=== PATIENT | female | born 1980 | race Caucasian/White ===

== ENCOUNTER 2016-08-30 21:11 | Emergency (ER) | payer OTHER ==
[~2016-08-30] VITALS: Ht 154.9 cm; Wt 75.2 kg
[~2016-08-30 21:11] MED LIST: TYL500 PO
[2016-08-30 21:25] VITALS: Ht 154.9 cm; Wt 75.2 kg
[2016-08-30] MEDS ORDERED: DEXT15DR2 RIGHT EYE (21:34)
[2016-08-30] MEDS ORDERED: PRED50TA PO (21:34)
[2016-08-30] MEDS ORDERED: VALA1000 PO (21:34)
--- NOTE | 2016-08-30 21:40 | ERD ---
ER Documentation Chief Complaint Date/Time DATE: 08/30/16 TIME: 21:36 Chief Complaint Right facial droop and unable to close right eye started yesterday HPI 36-year-old female presents here in emergency department for complaints of right facial drooping, unable to close right eyelid, numbness in the right side of the face area started yesterday. Patient denies any headache or dizziness. Patient denies any head injury. Patient denies any nausea vomiting. Patient denies any blurry vision. Patient denies any changes in balance or memory. Patient denies any numbness or tingling in other parts of the body. Patient denies any other symptoms. ROS All systems reviewed and are negative except as per history of present illness. Medications Home Meds Active Scripts Valacyclovir HCl (Valacyclovir) 1,000 Mg Tablet, 1000 MG PO TID for 7 Days, TAB Prov:NICOLE DE LEON NP 08/30/16 Dextran/Hypromellose/Glycerin (Artificial Tears Drops) 15 Ml Drops, 2 DROP RIGHT EYE Q6, #1 BOT Prov:NICOLE DE LEON NP 08/30/16 Prednisone* (Prednisone*) 50 Mg Tablet, 50 MG PO DAILY for 7 Days, TAB Prov:NICOLE DE LEON NP 08/30/16 Acetaminophen* (Tylenol*) 500 Mg Tab, 500 MG PO Q4H Y for MILD PAIN LEVEL 1-3, # 20 TAB Prov:HECTOR AVILES MD 06/27/15 Allergies Allergies: Coded Allergies: No Known Allergy (Unverified , 12/21/14) PMhx/Soc History of Surgery: Yes (c-sect x 3 ) Anesthesia Reaction: No Hx Neurological Disorder: No Hx Respiratory Disorders: No Hx Cardiac Disorders: No Hx Psychiatric Problems: Yes (depression ) Hx Miscellaneous Medical Probl: Yes (sleep disorder) Hx Alcohol Use: No Hx Substance Use: No Hx Tobacco Use: No FmHx Family History: No coronary disease, No diabetes, No other Physical Exam Vitals Vital Signs Date Time Temp Pulse Resp B/P Pulse Ox O2 Delivery O2 Flow Rate FiO2 08/30/16 21:25 98.9 90 16 119/67 97 Physical Exam GENERAL: The patient is well developed and appropriate for usual state of health, in no apparent distress. HEENT: Atraumatic. Bilateral are PERRL EOM intact. Ears: Normal tympanic membrane, no erythema or bulging. No ear canal swelling. No ear discharge. Nose : normal nasal turbinates, no erythema or swelling. Normal nasal discharge. Noted loss of right nasolabial fold. Throat: oropharynx clear. No tonsillar swelling or tonsillar exudates. No lymphadenopathy. No forehead sparing noted. CHEST: Clear to auscultation bilaterally. There are no rales, wheezes or rhonchi. HEART: Regular rate and rhythm. No murmurs, clicks, rubs or gallops. No S3 or S4. ABDOMEN: Soft, nontender and nondistended. Good bowel sounds. No rebound or guarding. No gross peritonitis. No gross organomegaly or masses. No Leung sign or McBurney point tenderness. BACK: No midline or flank tenderness. EXTREMITIES: Equal pulses bilaterally. There is no peripheral clubbing, cyanosis or edema. No focal swelling or erythema. Full range of motion. Grossly neurovascularly intact. NEURO: Alert and oriented. Cranial nerves 2-12 intact except for cranial nerves VII, facial nerve palsy noted. Motor strength in all 4 extremities with 5 /5 strength. Sensation grossly intact. Normal speech and gait. Negative overtime. Negative pronator drift. SKIN: There is no apparent rash or petechia. The skin is warm and dry. HEMATOLOGIC AND LYMPHATIC: There is no evidence of excessive bruising or lymphedema. No gross cervical, axillary, or inguinal lymphadenopathy. Procedures/MDM Medical Decision Making: Patient's symptoms of most likely consistent with Gipson' s palsy. There is low suspicion for neurological emergencies at this time since patients neurologic exam is normal except for facial nerve palsy. Patient did not have any altered level consciousness, vomiting, changes in balance or memory and did not have any head injury. There is no forehead sparing noted, no suspicion for acute stroke. Patients CT scan of the head is not indicated at this time. Patient was given for valacyclovir, prednisone, artificial tears, was advised to take the right eye with sleeping, mustache the right side of the face, patient was advised to take medications as prescribed, follow with primary care doctor in 2-3 days, reassured the patient, patient was given instructions to return to emergency department for acute stroke symptoms. Patient was advised to return to emergency department for any worsening symptoms Departure Diagnosis: Primary Impression: Gipson's palsy Condition: Stable Patient Instructions: Gipson's Palsy NICOLE DE LEON NP Aug 30, 2016 21:40
== END 2016-08-30 21:34 | disposition home or self-care (01) ==
LOC: E/R 21:11
DX: G51.0 Bell's palsy (principal)
CPT/HCPCS: 99284

== ENCOUNTER 2018-09-22 16:43 | Emergency (ER) | payer MEDICAID, OTHER ==
[~2018-09-22] VITALS: Ht 160 cm; Wt 71.6 kg
[~2018-09-22 16:43] MED LIST changes: +DEXT15DR2 RIGHT EYE; +PRED50TA PO; +VALA1000 PO
[2018-09-22 17:00] VITALS: BP 108/58; PULSE 80; RESP 18; Ht 160 cm; Wt 71.6 kg
--- NOTE | 2018-10-10 13:33 | ERD ---
ER Documentation Chief Complaint Chief Complaint right ear pain x2 days HPI Patient encounter from 09/22/18 38 yo F who presented to ED with 2 say complaint of ear pain. Unfortunately, patient left before full evaluation was complete. ROS All systems reviewed and are negative except as per history of present illness. Medications Home Meds Active Scripts valACYclovir HCl (valACYclovir) 1,000 Mg Tablet, 1000 MG PO TID for 7 Days, TAB Prov:NICOLE DE LEON NP 08/30/16 Dextran/Hypromellose/Glycerin (Artificial Tears Drops) 15 Ml Drops, 2 DROP RIGHT EYE Q6, #1 BOT Prov:NICOLE DE LEON NP 08/30/16 Prednisone* (Prednisone*) 50 Mg Tablet, 50 MG PO DAILY for 7 Days, TAB Prov:NICOLE DE LEON NP 08/30/16 Acetaminophen* (Tylenol*) 500 Mg Tab, 500 MG PO Q4H PRN for MILD PAIN LEVEL 1-3, #20 TAB Prov:HECTOR AVILES MD 06/27/15 Allergies Allergies: Coded Allergies: No Known Allergy (Unverified , 12/21/14) PMhx/Soc History of Surgery: Yes (c/section x4) Anesthesia Reaction: No Hx Neurological Disorder: No Hx Respiratory Disorders: No Hx Cardiac Disorders: No Hx Psychiatric Problems: Yes (depression ) Hx Miscellaneous Medical Probl: Yes (sleep disorder) Hx Alcohol Use: Yes Hx Substance Use: Yes Hx Tobacco Use: Yes Smoking Status: Current every day smoker Physical Exam Physical Exam Const: No acute distress Head: Atraumatic Eyes: Normal Conjunctiva ENT: Normal External Ears, Nose and Mouth. Neck: Full range of motion. No meningismus. Resp: Clear to auscultation bilaterally Cardio: Regular rate and rhythm, no murmurs Abd: Soft, non tender, non distended. Normal bowel sounds Skin: No petechiae or rashes Back: No midline or flank tenderness Ext: No cyanosis, or edema Neur: Awake and alert Psych: Normal Mood and Affect Procedures/MDM 38 yo F who presented with complaint of ear pain. Patient left before full medical evaluation could be completed. Departure Diagnosis: Primary Impression: Right ear pain Condition: Stable Patient Instructions: Earache W/O Infection (Adult) Additional Instructions: Call your primary care doctor TOMORROW for an appointment during the next 2-3 days.See the doctor sooner or return here if your condition worsens before your appointment time. PRINCESS LINDA PA-C Oct 10, 2018 13:33
== END 2018-09-22 20:26 | disposition left against medical advice (07) ==
LOC: FTE 16:43
DX: H92.01 Otalgia, right ear (principal); F17.210 Nicotine dependence, cigarettes, uncomplicated
CPT/HCPCS: 99282

== ENCOUNTER → 2019-02-14 | Emergency (ER) | payer MEDICAID, OTHER ==
[~2019-02-14] VITALS: Ht 152.4 cm; Wt 71.3 kg
[~2019-02-14] MED LIST changes: +CYCL10TA7 PO; +DEXAMETHASONE 10 MG/ML 1 ML INJ IM ONE; +KETOROLAC 30 MG INJ IM STA; +NAPR-985 PO
[2019-02-14 17:46] VITALS: BP 98/53; PULSE 71; RESP 18; Ht 152.4 cm; Wt 71.3 kg
--- NOTE | 2019-02-14 17:49 | EN ---
Date/Time of Note Date/Time of Note DATE: 02/14/19 TIME: 17:48 ER Progress Note [id number]-old female with right leg pain rating from back starting today after lifting. Symptoms suggestive of sciatica. ED 2 appropriate for evaluation for Toradol and further evaluation. HECTOR AVILES MD Feb 14, 2019 17:49
--- NOTE | 2019-02-14 23:44 | ERD ---
ER Documentation Chief Complaint Chief Complaint back pain radiating down right leg today HPI 38-year-old female previously healthy presents to the emergency department complaining of intermittent, 8/10 severity, worse with walking right-sided low back pain with radiation down her right leg which began just prior to arrival after lifting heavy clothes at work. She denies any loss of bowel or bladder function, saddle anesthesia, lower extremity numbness or weakness, fevers, chills, or other symptoms at this time. ROS All systems reviewed and are negative except as per history of present illness. Medications Home Meds Active Scripts Cyclobenzaprine Hcl* (Cyclobenzaprine Hcl*) 10 Mg Tablet, 10 MG PO TID, #15 TAB Prov:IKER CHAMPION PA-C 02/14/19 Naproxen* (Naprosyn*) 500 Mg Tablet, 500 MG PO BID PRN for PAIN AND/OR INFLAMMATION, #30 TAB Prov:IKER CHAMPION PA-C 02/14/19 valACYclovir HCl (valACYclovir) 1,000 Mg Tablet, 1000 MG PO TID for 7 Days, TAB Prov:NICOLE DE LEON NP 08/30/16 Dextran/Hypromellose/Glycerin (Artificial Tears Drops) 15 Ml Drops, 2 DROP RIGHT EYE Q6, #1 BOT Prov:NICOLE DE LEON NP 08/30/16 Prednisone* (Prednisone*) 50 Mg Tablet, 50 MG PO DAILY for 7 Days, TAB Prov:NICOLE DE LEON NP 08/30/16 Acetaminophen* (Tylenol*) 500 Mg Tab, 500 MG PO Q4H PRN for MILD PAIN LEVEL 1-3, #20 TAB Prov:HECTOR AVILES MD 06/27/15 Allergies Allergies: Coded Allergies: No Known Allergy (Unverified , 12/21/14) PMhx/Soc History of Surgery: Yes (c/section x4) Anesthesia Reaction: No Hx Neurological Disorder: No Hx Respiratory Disorders: No Hx Cardiac Disorders: No Hx Psychiatric Problems: Yes (depression ) Hx Miscellaneous Medical Probl: Yes (sleep disorder) Hx Alcohol Use: No Hx Substance Use: No Hx Tobacco Use: No Smoking Status: Never smoker FmHx Family History: No diabetes Physical Exam Vitals Vital Signs Date Temp Pulse Resp B/P (MAP) Pulse Ox O2 O2 Flow FiO2 Time Delivery Rate 02/14/19 98.3 71 18 98/53 (68) 96 17:46 Physical Exam Const: No acute distress Head: Atraumatic Eyes: Normal Conjunctiva ENT: Normal External Ears, Nose and Mouth. Neck: Full range of motion. No meningismus. Resp: Clear to auscultation bilaterally Cardio: Regular rate and rhythm, no murmurs Back Exam: Skin: No bruising or rash Compartments: Soft Motor: Normal flexion and extension of bilateral hip/knee/ankle/foot Sensation: Intact to light touch throughout Bones: No midline TTP Special test: Positive straight leg raise on the right. Ext: No cyanosis, or edema Neur: Awake and alert Psych: Normal Mood and Affect Results 24 hrs Laboratory Tests Test 02/14/19 18:44 POC Beta HCG, Qualitative NEGATIVE Current Medications Medications Dose Sig/Karen Start Time Status Last (Trade) Ordered Route PRN Stop Time Admin Dose Reason Admin Ketorolac 30 mg ONCE STAT 02/14/19 DC 02/14/19 Tromethamine IM 18:37 02/14/19 18:44 (Toradol) 18:39 10 mg ONCE ONCE 02/14/19 DC 02/14/19 Dexamethasone IM 19:00 02/14/19 18:45 (Decadron) 19:01 Procedures/MDM 38-year-old female presents emergency department with signs and symptoms most co nsistent with right-sided low back pain with sciatica. Patient was administered Toradol and Decadron in the department with significant impairment of her symptoms. Patient's musculoskeletal symptoms have stabilized while they have been evaluated in the department and are appropriate for outpatient work up. No evidence of cauda equina, cord compression, infiltrative, or infectious etiology. No evidence of life-threatening pathology at time of discharge. Pt/family in agreement with discharge plan/diagnosis. Pt/family advised to return immediately with any new or worsening symptoms. Follow-up with primary care physician within the next 1-2 days. Disclaimer: Inadvertent spelling and grammatical errors are likely due to EHR/dictation software use and do not reflect on the overall quality of patient care. Also, please note that the electronic time recorded on this note does not necessarily reflect the actual time of the patient encounter. Departure Diagnosis: Primary Impression: Right-sided low back pain with sciatica Chronicity: acute Sciatica laterality: sciatica of right side Qualified Codes: M54.41 - Lumbago with sciatica, right side Condition: Fair Patient Instructions: Back Pain W/ Sciatica Additional Instructions: Call your primary care doctor TOMORROW for an appointment during the next 1-2 days.See the doctor sooner or return here if your condition worsens before your appointment time. IKER CHAMPION PA-C Feb 14, 2019 23:44
== END | disposition home or self-care (01) ==
LOC: FTE 17:39
DX: M54.41 Lumbago with sciatica, right side (principal)
CPT/HCPCS: 81025; 96372; 99284; J1100; J1885